=== PATIENT | female | born 2000 | race Caucasian/White ===

== ENCOUNTER 2019-05-18 12:05 | Emergency (ER) | payer OTHER, SELFPAY ==
[2019-05-18] VITALS (7 sets, daily range): BP systolic 104–122; BP diastolic 62–80; PULSE 68–111; RESP 17–24; TEMP 37.6–38.2; O2SAT 99–100; BMI 21.7
[2019-05-18] MEDS: IBUPROFEN 400 MG TABLET PO (12:20)
[2019-05-18] MEDS: ONDANSETRON 4 MG ODT SL (12:20)
--- NOTE | 2019-05-18 12:26 | ED_ITS ---
HPI - Nausea/Vomiting/Diarrhea General Chief complaint: Nausea/Vomiting/Diarrhea Stated complaint: flu shot/vomiting/fever x21 days Time Seen by Provider: 05/18/19 12:09 Source: patient Mode of arrival: Ambulatory History of Present Illness HPI Narrative: Patient is a 18-year-old female history of anxiety presenting with vomiting body aches sore throat ongoing for the last 3 days. Mom states that she has been unable to keep anything down she states she has pain from vomiting so much she has no diarrhea who's currently febrile in the ED. MD complaint: nausea, vomiting and abdominal pain Description of Vomiting: watery Description of Diarrhea: none Associated Abdominal Pain: Yes Location of pain: diffuse Related Data Home Medications Medication Instructions Recorded Confirmed citalopram 20 mg tablet 20 mg PO DAILY 01/06/18 01/06/18 Previous Rx's Medication Instructions Recorded ondansetron 4 mg PO Q8H PRN #14 tab 05/18/19 Allergies Allergy/AdvReac Type Severity Reaction Status Date / Time No Known Drug Allergies Allergy Unverified 01/06/18 14:48 Review of Systems Review of Systems Narrative: GENERAL: Denies chills, fatigue, malaise, fever, sweats, travel HEENT: Denies sinus pain, ear pain, sore throat, difficulty swallowing, neck pain RESPIRATORY: Denies dyspnea, cough, wheezing, hemoptysis, sputum. CARDIOVASCULAR: Denies chest pain, palpitations, orthopnea, edema GASTROINTESTINAL: See HPI : Denies dysuria, frequency, incontinence, hematuria, urinary retention, flank pain. MUSCULOSKELETAL: Denies weakness, joint pain, or bony pain SKIN: No rash, no erythema, no pruritus NEUROLOGIC: Denies weakness, dizziness, headache, numbness, change in speech, confusion PSYCHIATRIC: No concerning psychosocial issues. 12 point review of systems is negative except for those stated above and HPI Patient History Medical History Anxiety (Acute) Social History Smoking Status: Never smoker Smoking Status: Never smoker Exam Initial Vital Signs Initial Vital Signs: Vital Signs Temperature 100.7 F H 05/18/19 12:10 Pulse Rate 111 H 05/18/19 12:10 Respiratory Rate 24 05/18/19 12:10 Blood Pressure 122/80 05/18/19 12:10 Pulse Oximetry 100 05/18/19 12:10 GENERAL: Alert young female appears to not feel well and in no acute distress. HEENT: Head atraumatic,EOMI, pupils reactive, face symmetric, dry mucous membranes PHARYNX: No erythema, no tonsillar exudate, no cervical lymphadenopathy CARDIOVASCULAR: Regular rate and rhythm without murmurs, rubs or gallops. RESPIRATORY: Breath sounds equal bilaterally, no wheezes rales or rhonchi. ABDOMEN: Soft, diffusely tender no guarding no rebound or localization EXTREMITIES: Normal range of motion, no clubbing or edema. Neurovascularly intact NEUROLOGICAL: Alert and oriented x4.Normal gait and speech. SKIN: Warm, dry, no laceration, no petechiae, no rashes or lesions. Course Orders Ordered: ED Orders 05/18/19 12:13 Flu test [Influenza A & B (PCR)] Stat Discontinued Medications Ibuprofen (Advil) 400 mg PO NOW ONE Stop: 05/18/19 12:15 Last Admin: 05/18/19 12:20 Dose: 400 mg Documented by: MARIA LUISA Ondansetron HCl (Zofran Odt) 4 mg SL NOW ONE Stop: 05/18/19 12:18 Last Admin: 05/18/19 12:20 Dose: 4 mg Documented by: MARIA LUISA Ondansetron HCl (Zofran Odt Prepack) 1 bottle MISC SEEINSTR ONE Stop: 05/18/19 13:32 Last Admin: 05/18/19 13:39 Dose: 1 bottle Documented by: MARIA LUISA Vital Signs Vital signs: Vital Signs - 8 hr 05/18/19 12:10 05/18/19 12:20 05/18/19 12:26 Temperature 100.7 F H 100.7 F H Pulse Rate 111 H 91 H Respiratory Rate 24 21 Blood Pressure 122/80 Blood Pressure [Right Arm] Pulse Oximetry 100 100 05/18/19 12:40 05/18/19 13:00 05/18/19 13:51 Temperature 99.7 F H Pulse Rate 82 68 Respiratory Rate 17 17 Blood Pressure Blood Pressure [Right Arm] 110/73 104/63 Pulse Oximetry 99 99 05/18/19 13:53 Temperature 99.7 F H Pulse Rate 78 Respiratory Rate 18 Blood Pressure Blood Pressure [Right Arm] 104/62 Pulse Oximetry 100 MDM - Nausea/Vomiting/Diarrhea Lab Data Labs: Lab Results 05/18/19 Range/Units 12:13 Influenza A (RT-PCR) Flu a negative (NEGATIVE) Influenza B (RT-PCR) Flu b positive H (NEGATIVE) [facility] Narrative Medical decision making narrative: Is patient does appear slightly dry initially discussed IV fluids is however she got quite anxious about it wanted to try Zofran ODT she was able to swallow Motrin without difficulty. Will attempt oral rehydration and wait for influenza. Influenza positive, tolerating oral fluids fever down not tachycardic Discharge Plan Departure Patient Disposition: Home Clinical Impression: Influenza B Discharge Date/Time: 05/18/19 13:57 Instructions: DI for Influenza -- Adult Activity Restrictions/Additional Instructions: *You have been diagnosed with influenza B *What to do: Increased fluid intake. At this time no antibiotics indicated. Expect to have fever body aches and chills. Recommend Gatorade or Gatorade like product to stay hydrated *Continue to take medications as directed Zofran 4 mg every 8 hours as needed for nausea vomiting Ibuprofen 800 mg every 8 hours if needed for body aches or fever Tylenol 1000 mg every 6 hours if needed for body aches fever *Follow up with your primary care provider in 2-3 days *Return to ER if you should have persistent vomiting fever not controlled inability to tolerate or any new, worsening or concerning symptoms Prescriptions: New ondansetron 4 mg tablet,disintegrating 4 mg PO Q8H PRN (Reason: nausea and vomiting) Qty: 14 RF: 0 No Action citalopram 20 mg tablet 20 mg PO DAILY RF: 0
[2019-05-18 12:46] LABS: Influenza A - CEPHEID Flu A NEGATIVE (NEGATIVE); Influenza B - CEPHEID Flu B POSITIVE (NEGATIVE)
[2019-05-18] MEDS: ONDANSETRON 4 MG ODT PREPACK 1 BOTTLE MISC (13:39)
== END 2019-05-18 13:57 | disposition home or self-care (01) ==
PROVIDERS: Emergency Provider Emergency Medicine
DX: J10.1 Influenza due to other identified influenza virus with other respiratory manifestations (principal)
CPT/HCPCS: 87502; 99282; 99283

== ENCOUNTER 2019-05-19 23:28 | Emergency (ER) | payer OTHER, SELFPAY ==
[2019-05-19 23:45] VITALS: BP 141/122; PULSE 121; RESP 16; TEMP 36.9; O2SAT 99; BMI 21.7
[2019-05-20] MEDS: SODIUM CHLORIDE 0.9% 1,000 ML 1000 ML IV (00:04)
[2019-05-20] MEDS: ONDANSETRON 4 MG/2 ML INJ IV (00:04)
[2019-05-20] MEDS: LORazepam 2 MG/ML INJ 0.5 MG IV (00:04)
[2019-05-20 00:10] LABS: Add Manual Diff / Slide Review NO; Basophils Absolute Auto 0 /uL (0-100); Basophils Percent Auto 0.6 % (0-2); Eosinophils Absolute Auto 0 /uL (0-450); Eosinophils Percent Auto 0.3 % (2-4); Hematocrit 41.8 % (36-46); Hemoglobin 14.8 g/dL (12.0-16.0); Lymphocytes Absolute Auto 1800 /uL (1100-4500); Lymphocytes Percent Auto 34.2 % (25-40); Mean Corpuscular HGB Conc 35.3 % (30-36); Mean Corpuscular Hemoglobin 29.1 PG (26-34); Mean Corpuscular Volume 82.5 fL (80-100); Monocytes Absolute Auto 800 /uL (0-900); Monocytes Percent Auto 15.4 % (3-14); Neutrophils Absolute Auto 2500 /uL (1500-7000); Neutrophils Percent Auto 49.5 % (50-75); Platelet Count 220 X10^3/uL (150-400); Red Blood Cell Count 5.07 X10^6/uL (4.0-5.2); Red Cell Distribution Width 13.2 % (11.6-14.8); White Blood Cell Count 5.1 X10^3/uL (4.5-11.0)
[2019-05-20 00:22] LABS: Alanine Aminotransferase 27 IU/L (<35); Albumin 4.7 g/dL (3.5-5.0); Albumin Globulin Ratio 1.4 (1.0-2.8); Alkaline Phosphatase 60 U/L (38-126); Aspartate Aminotransferase 38 IU/L (14-36); BUN Creatinine Ratio 25.7 (6-22); Bilirubin Total 0.6 mg/dL (0.2-1.3); Blood Urea Nitrogen 18 mg/dL (7-17); Calcium 9.6 mg/dL (8.4-10.2); Carbon Dioxide 18 mmol/L (22-32); Chloride 103 mmol/L (98-107); Estimated Glomerular Filt Rate > 60.0 mL/min (>60); Globulin 3.4 g/dL (1.7-4.1); Glucose 116 mg/dL (70-100); HEMOLYSIS < 15 (0-50); Potassium 3.5 mmol/L (3.4-5.1); Sodium 138 mmol/L (137-145); Total Protein 8.1 g/dL (6.3-8.2)
--- NOTE | 2019-05-20 00:33 | ED_ITS ---
HPI - Nausea/Vomiting/Diarrhea General Chief complaint: Nausea/Vomiting/Diarrhea Stated complaint: not feeling good 5 days/ here yesterday Time Seen by Provider: 05/19/19 23:30 Source: patient Mode of arrival: Ambulatory Limitations: no limitations History of Present Illness HPI Narrative: 18-year-old female nonsmoker with a strong history of anxiety and known flu B presents with chief complaint of anxiety and persistent nausea and vomiting with abdominal discomfort. She was seen and evaluated yesterday under similar circumstances and sent with antinausea medications. She denies any ongoing fever or chills but still feels terrible and is feeling dizzy, weak and lightheaded. She is tearful and quite worked up MD complaint: nausea and vomiting Onset (ago): day(s) Description of Vomiting: food contents Description of Diarrhea: none Associated Abdominal Pain: Yes Location of pain: diffuse Severity: mild Quality: cramping Pain Consistency: intermittent Relieving factors: none Exacerbating factors: none Associated symptoms: cough Related Data Home Medications Medication Instructions Recorded Confirmed citalopram 20 mg tablet 20 mg PO DAILY 01/06/18 01/06/18 Previous Rx's Medication Instructions Recorded ondansetron 4 mg PO Q8H PRN #14 tab 05/18/19 Allergies Allergy/AdvReac Type Severity Reaction Status Date / Time No Known Drug Allergies Allergy Verified 05/19/19 23:44 Review of Systems Constitutional Constitutional: Reports chills, Denies fatigue, Reports fever(s), Denies frequent falls, Denies lethargy and Reports weakness Eyes Eyes: Denies change in vision, Denies eye discharge, Denies irritation and De nies loss of vision ENT Ears, Nose, Mouth, and Throat: Denies change in voice, Denies dizziness, Denies neck pain, Denies sore throat and Denies throat swelling Cardiovascular Cardiovascular: Denies chest pain, Denies irregular heart rhythm, Denies lightheadedness, Denies palpitations, Denies dyspnea, Denies dyspnea on exertion and Denies orthopnea Respiratory Respiratory: Reports cough, Denies dyspnea, Denies dyspnea on exertion and Denies wheezing Gastrointestinal Gastrointestinal: Reports abdominal pain, Denies change in bowel habits, Denies diarrhea, Reports nausea and Reports vomiting Genitourinary Genitourinary: Denies hematuria, Denies flank pain, Denies urinary incontinence and Denies urinary urgency Musculoskeletal Musculoskeletal: Denies back pain, Denies muscle weakness, Denies neck pain, Denies numbness and Denies tingling Integumentary/Breasts Skin/Breast: Denies pruritus, Denies erythema, Denies rash and Denies wounds Neurologic Neurologic: Denies behavioral changes, Denies confusion, Denies dizziness, Denies frequent falls, Denies loss of vision, Denies numbness, Denies tingling a nd Reports weakness Psychiatric Psychiatric: Denies anxiety, Denies behavioral changes, Denies confusion, Denies depression, Denies homicidal ideation and Denies suicidal ideation Endocrine Endocrine: Denies fatigue, Denies flushing and Denies palpitations Hematologic/Lymphatic Hematologic/Lymphatic: Denies easy bruising Allergic/Immunologic Allergic/Immunologic: Denies urticaria, Denies throat swelling and Denies wheezing Patient History Medical History Anxiety (Acute) Social History Smoking Status: Never smoker Smoking Status: Never smoker alcohol intake frequency: holidays/special occasions only Substance Use Type: does not use Exam Narrative Exam Narrative: GENERAL: [18] year old patient appears stated age. Well- nourished, well-developed patient, in mild distress. Tearful, anxious, dry heaving HEAD: Atraumatic. Normocephalic. EYES: Pupils equal round and reactive. Extraocular motions intact. No scleral icterus. No injection or drainage. ENT: Nose without bleeding, purulent drainage. Throat without erythema, tonsillar hypertrophy or exudate. Airway patent. NECK: Trachea midline. Non tender CARDIOVASCULAR: Regular rate and rhythm without murmurs, gallops, or rubs. RESPIRATORY: Clear to auscultation. Breath sounds equal bilaterally. No wheezes, rales, or rhonchi. GASTROINTESTINAL: Abdomen soft, non-tender, nondistended. EXTREMITIES: No edema or joint tenderness. BACK: Nontender without deformity or crepitance. No flank tenderness. NEURO: AOx3. SKIN: No rash or erythema of visible areas Initial Vital Signs Initial Vital Signs: Vital Signs Temperature 98.5 F 05/19/19 23:45 Pulse Rate 121 H 05/19/19 23:45 Respiratory Rate 16 05/19/19 23:45 Blood Pressure 141/122 H 05/19/19 23:45 Pulse Oximetry 99 05/19/19 23:45 Course Course Course Narrative: Patient has had fluids and feeling much better. She has been given extensive return precautions. She and family have had questions answered to their apparent satisfaction Orders Ordered: ED Orders 05/19/19 23:45 Complete Blood Count AUTO DIFF Stat Comprehensive Metabolic Panel Stat Stool Culture Stat Discontinued Medications Sodium Chloride (Normal Saline 0.9%) 1,000 mls @ 1,000 mls/hr IV BOLUS ONE Stop: 05/20/19 00:44 Last Infusion: 05/20/19 00:44 Dose: 0 mls/hr Documented by: Admin: 05/20/19 00:04 Dose: 1,000 mls/hr Documented by: GM Lorazepam (Ativan) 0.5 mg IV NOW ONE Stop: 05/19/19 23:46 Last Admin: 05/20/19 00:04 Dose: 0.5 mg Documented by: GM Ondansetron HCl (Zofran) 4 mg IV NOW ONE Stop: 05/19/19 23:46 Last Admin: 05/20/19 00:04 Dose: 4 mg Documented by: GM Vital Signs Vital signs: Vital Signs - 8 hr 05/19/19 23:45 05/20/19 00:58 Temperature 98.5 F Pulse Rate 121 H 76 Respiratory Rate 16 Blood Pressure 141/122 H Pulse Oximetry 99 98 MDM - Nausea/Vomiting/Diarrhea Lab Data Result diagrams: 05/20/19 00:03 05/20/19 00:03 Labs: Lab Results 05/20/19 05/20/19 Range/Units 00:03 00:03 WBC 5.1 (4.5-11.0) X10^3/uL RBC 5.07 (4.0-5.2) X10^6/uL Hgb 14.8 (12.0-16.0) g/dL Hct 41.8 (36-46) % MCV 82.5 (80-100) fL MCH 29.1 (26-34) PG MCHC 35.3 (30-36) % RDW 13.2 (11.6-14.8) % Plt Count 220 (150-400) X10^3/uL Neut % (Auto) 49.5 L (50-75) % Lymph % (Auto) 34.2 (25-40) % Mcmullen % (Auto) 15.4 H (3-14) % Eos % (Auto) 0.3 L (2-4) % Baso % (Auto) 0.6 (0-2) % Neut # (Auto) 2500 (0376-9522) /uL Lymph # (Auto) 1800 (9957-3716) /uL Mcmullen # (Auto) 800 (0-900) /uL Eos # (Auto) 0 (0-450) /uL Baso # (Auto) 0 (0-100) /uL Sodium 138 (137-145) mmol/L Potassium 3.5 (3.4-5.1) mmol/L Chloride 103 (98-107) mmol/L Carbon Dioxide 18 L (22-32) mmol/L BUN 18 H (7-17) mg/dL Creatinine 0.70 (0.52-1.04) mg/dL Estimated GFR > 60.0 (>60) mL/min BUN/Creatinine Ratio 25.7 H (6-22) Glucose 116 H (70-100) mg/dL Calcium 9.6 (8.4-10.2) mg/dL Total Bilirubin 0.6 (0.2-1.3) mg/dL AST 38 H (14-36) IU/L ALT 27 (<35) IU/L Alkaline Phosphatase 60 (38-126) U/L Total Protein 8.1 (6.3-8.2) g/dL Albumin 4.7 (3.5-5.0) g/dL Globulin 3.4 (1.7-4.1) g/dL Albumin/Globulin Ratio 1.4 (1.0-2.8) Discharge Plan Departure Patient Disposition: Home Clinical Impression: Influenza B, Anxiety Activity Restrictions/Additional Instructions: 1. Drink plenty of fluids with frequent small sips. 2. For the next 24-48 hours a clear liquid diet is advised. After that please employ a brat diet which would include bananas, rice, apples, toast. 3. Please take medications as directed. 4. Please follow-up with your doctor in the next 1-2 days. Call the office for an appointment. 5. Please return to the emergency Department for any worsening or persistent symptoms, such as increasing pain or fever. Prescriptions: No Action citalopram 20 mg tablet 20 mg PO DAILY RF: 0 ondansetron 4 mg tablet,disintegrating 4 mg PO Q8H PRN (Reason: nausea and vomiting) Qty: 14 RF: 0
[2019-05-20 00:58] VITALS: PULSE 76; O2SAT 98
[2019-05-20 01:14] VITALS: BP 110/60; PULSE 72; RESP 16; O2SAT 98
== END 2019-05-20 01:15 | disposition home or self-care (01) ==
PROVIDERS: Emergency Provider Emergency Medicine
DX: J10.1 Influenza due to other identified influenza virus with other respiratory manifestations (principal); R11.2 Nausea with vomiting, unspecified; F41.9 Anxiety disorder, unspecified
CPT/HCPCS: 36415; 80053; 85025; 96361; 96374; 96375; 99283; 99284; J2060; J2405

== ENCOUNTER 2019-05-20 19:36 | Emergency (ER) | payer OTHER, SELFPAY ==
[2019-05-20 19:39] VITALS: BP 98/61; PULSE 73; RESP 18; TEMP 36.7; O2SAT 100
--- NOTE | 2019-05-20 19:59 | PC.NURSE ---
patient reports three episodes of vomiting today, 10 episodes of vomiting yesterday. Patient states I just need relief. patient reports having flu b diagnosed two days ago here in the ED and needing to come in yesterday for IV fluids.
[2019-05-20 20:00] VITALS: BP 109/72; PULSE 62; O2SAT 100
--- NOTE | 2019-05-20 20:24 | CM.SWNOTE ---
Discharge Planning/Care Management DIRECTOR OF SCIENTIFIC RESEARCH - Summer Analyst Assessment Start: 05/20/19 20:10 Freq: Status: Active Protocol: Document 05/20/19 20:10 DPL (Rec: 05/20/19 20:24 DPL [id number]) DIRECTOR OF SCIENTIFIC RESEARCH/Summer Analyst Assessment Start date 05/20/19 Visit Start Time 08:00 End date 05/20/19 Visit End Time 08:30 Total time Care Management spent on 30 patient visit-in minutes Presenting Problem Pt presents to the ED with acute anxiety, also is flu+ with nausea/vomiting. This is her third day in a row presenting to the ED for same symptoms. Precipitating Event(s) Pt is accompanied by her mother, who shares that pt is especially prone to anxiety attacks when anything medical is mentioned. She shares that she also broke up with her boyfriend today, exacerbating her already anxious state. Current Behavioral Health Provider(s) Not at this time. DIRECTOR OF SCIENTIFIC RESEARCH Include Facility, Provider, Ph. # discussed local resources for ongoing counseling. Psych. Hx Mental Health and Chemical Pt acknowledges regular use of Dependency marijuana. Support System(s) Family, friends, school. Orientation (Person/Place/Time) Oriented X3. Affect Tearful, anxious. Thought Content - Specify/Describe Congruent, appropriate, Obsessions, Delusions, Hallucinations although anxious. Thought Processes (Dzbjcwm-Ivhhljrp-Syjp Logical Reoxlmkv-Ttkrhirs-Junozvjhjj- Gbhfpwqtdffmfu-Wobmhkz-Qeisqcoewkbe- Thought Blocking) Speech (Aqfyzn-Iezb-Gtfuzkw-Rapid-Soft- Rapid, soft. Loud-Pressured) Motor (Hyvhoq-Pjjbddtqo-Hzej-Other) Agitated Insight (Present-Partially Present- Partially present. Impaired) Judgement (Intact-Impaired) Impaired Impulse Control (Adequate-Impaired) Impaired Memory (Fusynechs-Nirtfw-Oiqisw, Intact Impaired-Intact) Concentration (Intact-Impaired) Intact Attention (Intact-Impaired) Intact Behavior (Appropriate-Inappropriate) Appropriate Suicidal Ideation (Plan) No Homicidal Ideation (Plan) No Intervention Supportive counseling, resources for community based mental health support. RA Plan D/C home with family.
--- NOTE | 2019-05-20 20:25 | ED_ITS ---
HPI - Nausea/Vomiting/Diarrhea General Chief complaint: Nausea/Vomiting/Diarrhea Stated complaint: FLU/ANXIETY ATTACK VOMITING Time Seen by Provider: 05/20/19 19:40 Source: patient Mode of arrival: Ambulatory Limitations: no limitations History of Present Illness HPI Narrative: 18-year-old female with history of anxiety and flu positive swab returns for her 3rd visit in the past few days with complaint of nausea, vomiting and severe anxiety. She has had thorough evaluations with reassuring exams, labs, and response to medications. Patient was quite well upon DC yesterday and claims to have had hallucinations after being given Ativan here. She had 3 episodes of vomiting today. She is very upset, and tearful. Admittedly scared to even remove the coban from yesterday's visit. Related Data Home Medications Medication Instructions Recorded Confirmed citalopram 20 mg tablet 20 mg PO DAILY 01/06/18 05/20/19 Previous Rx's Medication Instructions Recorded ondansetron 4 mg PO Q8H PRN #14 tab 05/18/19 hydroxyzine HCl 25 mg PO TID PRN #14 tab 05/20/19 promethazine 12.5 mg [place] Q4-6H PRN #12 each 05/20/19 Allergies Allergy/AdvReac Type Severity Reaction Status Date / Time No Known Drug Allergies Allergy Verified 05/20/19 19:41 Review of Systems Constitutional Constitutional: Denies chills, Denies fatigue, Denies fever(s), Denies frequent falls, Denies lethargy and Denies weakness Eyes Eyes: Denies change in vision, Denies eye discharge, Denies irritation and Denies loss of vision ENT Ears, Nose, Mouth, and Throat: Denies change in voice, Denies dizziness, Denies neck pain, Denies sore throat and Denies throat swelling Cardiovascular Cardiovascular: Denies chest pain, Denies irregular heart rhythm, Denies lightheadedness, Denies palpitations, Denies dyspnea, Denies dyspnea on exertion and Denies orthopnea Respiratory Respiratory: Denies cough, Denies dyspnea, Denies dyspnea on exertion and Denies wheezing Gastrointestinal Gastrointestinal: Denies abdominal pain, Denies change in bowel habits, Denies diarrhea, Reports nausea and Reports vomiting Genitourinary Genitourinary: Denies hematuria, Denies flank pain, Denies urinary incontinence and Denies urinary urgency Musculoskeletal Musculoskeletal: Denies back pain, Denies muscle weakness, Denies neck pain, Denies numbness and Denies tingling Integumentary/Breasts Skin/Breast: Denies pruritus, Denies erythema, Denies rash and Denies wounds Neurologic Neurologic: Denies behavioral changes, Denies confusion, Denies dizziness, Denies frequent falls, Denies loss of vision, Denies numbness, Denies tingling and Denies weakness Psychiatric Psychiatric: Reports anxiety, Denies behavioral changes, Denies confusion, Denies depression, Denies homicidal ideation and Denies suicidal ideation Endocrine Endocrine: Denies fatigue, Denies flushing and Denies palpitations Hematologic/Lymphatic Hematologic/Lymphatic: Denies easy bruising Allergic/Immunologic Allergic/Immunologic: Denies urticaria, Denies throat swelling and Denies wheezing Patient History Medical History Anxiety (Acute) Social History Smoking Status: Never smoker Smoking Status: Never smoker alcohol intake frequency: holidays/special occasions only Substance Use Type: does not use Exam Narrative Exam Narrative: GEN: AOx3 and in mild distress, tearful and anxious, holding emesis bag with dry heaves EYES: Pupils are equal, round, and reactive to light and accommodation. Extraoccular muscles are intact bilaterally. There is no subconjunctival hemorrhage or exudate. CHEST: Lungs are clear to auscultation bilaterally and free of wheezes, rales, or rhonchi. Heart rate is regular rhythm, there are no murmurs, clicks, rubs, or gallops. There is no chest wall tenderness. ABD: Abdomen is soft and nontender. There is no guarding or rebound. Bowel grace nds are normal in all 4 quadrants. There is no mass or organomegaly. EXT: Full painless ROM of all extremities with no loss of sensation or strength. SKIN: Warm, pink, and dry. No erythema or rash Initial Vital Signs Initial Vital Signs: Vital Signs Temperature 98.1 F 05/20/19 19:39 Pulse Rate 73 05/20/19 19:39 Respiratory Rate 18 05/20/19 19:39 Blood Pressure 98/61 05/20/19 19:39 Pulse Oximetry 100 05/20/19 19:39 Course Orders Ordered: Discontinued Medications Hydroxyzine HCl (Vistaril) 25 mg IM NOW ONE Stop: 05/20/19 20:37 Last Admin: 05/20/19 20:45 Dose: 25 mg Documented by: DUANE Vital Signs Vital signs: Vital Signs - 8 hr 05/20/19 21:43 Pulse Rate 71 Blood Pressure [Left Arm] 112/61 Pulse Oximetry 100 MDM - Nausea/Vomiting/Diarrhea MDM Narrative Medical decision making narrative: Patient has a very reassuring exam and stable vital signs. She has been seen and evaluated by the a quality engineer medical device to discuss severe anxiety. Patient has a near complete resolution of symptoms with hydroxyzine. She is feeling quite well and tolerating orals. She has been given return precautions and had questions answered to her apparent satisfaction Discharge Plan Departure Patient Disposition: Home Clinical Impression: Anxiety Discharge Date/Time: 05/20/19 22:06 Activity Restrictions/Additional Instructions: 1. Drink plenty of fluids with frequent small sips. 2. For the next 24 hours a clear liquid diet is advised. After that please employ a brat diet which would include bananas, rice, apples, toast. 3. Please take medications as directed. 4. Please follow-up with your doctor in the next 1-2 days. Call the office for an appointment. 5. Please return to the emergency Department for any worsening or persistent symptoms, such as increasing pain or fever. Prescriptions: New hydroxyzine HCl 25 mg tablet 25 mg PO TID PRN (Reason: nausea and vomiting) Qty: 14 RF: 0 promethazine 12.5 mg suppository 12.5 mg [place] Q4-6H PRN (Reason: nausea and vomiting) Qty: 12 RF: 0 No Action citalopram 20 mg tablet 20 mg PO DAILY RF: 0 ondansetron 4 mg tablet,disintegrating 4 mg PO Q8H PRN (Reason: nausea and vomiting) Qty: 14 RF: 0
--- NOTE | 2019-05-20 20:30 | PC.NURSE ---
patient report anxiety related to medical issues, recent diagnosis of flu has increased anxiety. Patient reports she also had a breakup today that has made it way worse. Patient denies SI/HI, patient states the medication given her yeaterday made her hallucinate and she just want releif. Provider aware and at bedside.
[2019-05-20] MEDS: hydrOXYzine 50 MG/ML INJ 25 MG IM (20:45)
[2019-05-20 21:43] VITALS: BP 112/61; PULSE 71; O2SAT 100
== END 2019-05-20 22:06 | disposition home or self-care (01) ==
PROVIDERS: Emergency Provider Emergency Medicine
DX: F41.9 Anxiety disorder, unspecified (principal); R11.2 Nausea with vomiting, unspecified
CPT/HCPCS: 96372; 99283; 99284; J3410